=== PATIENT | female | born 1970 | race American Indian/Alaskan Native ===

== ENCOUNTER 2022-03-19 01:44 | Emergency (ER) | payer OTHER ==
[2022-03-19 02:07] VITALS: BP 193/89
== END 2022-03-19 12:00 | disposition left against medical advice (07) ==
LOC: ED 01:44
DX: I10 Essential (primary) hypertension (principal); R00.2 Palpitations; Z53.21 Procedure and treatment not carried out due to patient leaving prior to being seen by health care provider
CPT/HCPCS: 93005